=== PATIENT | male | born 1955 | race Caucasian/White ===

== ENCOUNTER → 2020-01-30 | Outpatient (CLI) | payer BC ==
--- NOTE | 2020-01-30 09:17 | US ---
EXAMINATION TYPE: US prostate transrectal DATE OF EXAM: 01/30/2020 COMPARISON: NONE CLINICAL HISTORY: R97.20 elevated psa. This examination was performed using the transrectal probe. EXAM MEASUREMENTS: Gland Size: 6.6 x 4.0 x 6.0cm Volume: 83.0 Predicted PSA: 10.0 Actual PSA (if available): 4.5 Enlarged heterogeneous gland. No obvious mass seen in peripheral zone. IMPRESSION: Prostate glandular enlargement without suspicious lesion identified. Predicted PSA = volume x 0.12 ng/ml Calculated Volume = 0.5236 x L x W x H
== END | disposition home or self-care (01) ==
LOC: RADUSWWP 07:02
PROVIDERS: ATTEND Family Medicine
DX: N40.0 Benign prostatic hyperplasia without lower urinary tract symptoms (principal)
CPT/HCPCS: 76872